=== PATIENT | male | born 1995 | race Hispanic/Latino ===

== ENCOUNTER 2019-02-22 13:39 | Inpatient (IN) | payer MEDICAID, SELFPAY ==
--- NOTE | 2019-02-22 15:04 | RAD ---
2 VIEW CHEST: Date: 02/22/19 HISTORY: Dialysis patient. Renal failure. FINDINGS: The lung andrade are clear. Heart and mediastinum unremarkable. A large caliber central line is in lee ann ce with tip overlying the SVC. IMPRESSION: No acute chest abnormality. POS: C
[2019-02-22 15:25] LABS: #Basophils 0.1 thou/uL (0.0-0.2); #Eosinphils 0.6 thou/uL (0.0-0.7); #Lymphocytes 2.1 thou/uL (1.20-3.40); #Monocytes 0.7 thou/uL (0.11-0.59); %Basophils 1.3 % (0.0-1.0); %Eosinophils 6.8 % (0.0-10.0); %Lymphocytes 24.9 % (21.0-51.0); %Monocytes 8.3 % (0.0-10.0); %Neutrophils 58.7 % (42.0-75.0); Hemoglobin 9.1 g/dL (14.0-18.0); Mean Corpuscular HGB CONC 33.6 g/dL (32.0-36.0); Mean Corpuscular Hemoglobin 30.5 pg (27.0-31.0); Mean Corpuscular Volume 90.7 fL (78.0-98.0); Mean Platelet Volume 9.1 fL (7.4-10.4); Platelet Count 217 thou/uL (130-400); RBC Distribution Width 11.5 % (11.5-14.5); Red Blood Cell (RBC) Count 2.99 mill/uL (4.70-6.10); White Blood Cell (WBC) Count 8.5 thou/uL (4.8-10.8)
[2019-02-22 15:45] LABS: ALT (SGPT) 18 U/L (8-55); AST (SGOT) 17 U/L (5-34); Albumin 3.8 g/dL (3.5-5.0); Alkaline Phosphatase 439 U/L (40-150); Anion Gap 18 mmol/L (10-20); BUN (Urea Nitrogen) 76 mg/dL (8.9-20.6); Bilirubin, Total 0.7 mg/dL (0.2-1.2); Calc. Creatinine Clearance 0 mL/min (70-130); Calcium 10.6 mg/dL (7.8-10.44); Carbon Dioxide 25 mmol/L (22-29); Chloride 102 mmol/L (98-107); Estimated GFR-MDRD 4; Globulin 3.8 g/dL (2.4-3.5); Glucose 87 mg/dL (70-105); Potassium 4.9 mmol/L (3.5-5.1); Protein, Total 7.6 g/dL (6.0-8.3); Sodium 140 mmol/L (136-145)
[2019-02-22 15:56] LABS: Bilirubin Negative (Negative); Blood, Urine Trace (Negative); Clarity CLEAR (Clear); Glucose, Urine (Dipstick) Negative (Negative); Leukocyte Negative (Negative); Nitrite Negative (Negative); Protein, Urine (Dipstick) > or equal to 300 mg/dL (Neg-Trace); Specific Gravity, Urine 1.014 (1.002-1.036); Urobilinogen 0.2 mg/dL (0.2-1.0)
[2019-02-22 15:58] LABS: Bacteria/HPF None Seen HPF (None Seen); Hyaline Casts/LPF 0-3 HYALINE CAST LPF (0-3 Hyaline); RBC/HPF 0-3 HPF (0-3)
[2019-02-22 16:02] LABS: Renal Epithelial None Seen HPF (0-3); Transitional Epithelial NONE SEEN HPF (0-3)
[2019-02-22 18:27] VITALS: BMI 25.7
[2019-02-22] MEDS ORDERED: Acetaminophen 325 MG TAB PO PRN (18:35)
[2019-02-22] MEDS ORDERED: Acetaminophen 650 MG Suppository PR PRN (18:35)
--- NOTE | 2019-02-22 19:48 | HP ---
CHIEF COMPLAINT: In need of dialysis. HISTORY OF PRESENT ILLNESS: Mr. Camejo is a 23-year-old gentleman, who has recently come back from vacation in [place], visiting family. He states he was there for approximately 1 week, when he began to feel generally unwell and was noted to be pale by his family members. He was seen by a doctor in [place] and underwent laboratory studies, which showed renal failure. The patient states he underwent multiple investigations including renal ultrasound, but does not have results of this, though he is carrying images with him. He was seen by a senior cost accountant in [place] and started on dialysis. The patient states he was told his renal failure was due to uncontrolled blood pressure, although the patient states he has never been told he had issues with his blood pressure in the past. He admits to never being seen by a doctor before and being in good state of health until recently. The patient states he began dialysis on February 13, 2019. His 3rd round of dialysis was done this past Wednesday on February 20, 2019. The patient visit and has been living here in [place] for the last few years; however, does not have any established care with a PCP. He was advised to come to the nearest emergency room for dialysis. The patient states he has felt significantly better since starting dialysis, and at this present time, denies feeling any malaise. He has not had any fevers, chills, or sweats. Denies any nausea or vomiting. No headaches or dizziness. No abdominal pain or cramping. He does continue to urinate and does so without any difficulties. Has not noted any hematuria. Has not noted any lower leg edema or swelling. REVIEW OF SYSTEMS: Apart from those mentioned above in HPI, all other review of systems are negative. PAST MEDICAL HISTORY: 1. Newly diagnosed end-stage renal disease, on dialysis. 2. Newly diagnosed hypertension. PAST SURGICAL HISTORY: FAMILY HISTORY: Kidney disease in his paternal great aunt. SOCIAL HISTORY: The patient denies any alcohol use. He does not smoke. Denies any illicit drug use. PHYSICAL EXAMINATION: GENERAL: The patient appears well developed, well nourished. He is in no acute distress. VITAL SIGNS: Temperature 98.3, pulse 86, blood pressure 122/78, respirations 15, O2 saturations 99% on room air. HEENT: Normocephalic and atraumatic. Pupils are equal, round, and reactive to light. Sclerae are without icterus. Oropharynx is clear. NECK: Supple. No lymphadenopathy. LUNGS: Clear to auscultation bilaterally without wheezes, rales, or rhonchi. CARDIAC: Regular rate and rhythm. ABDOMEN: Soft, nontender, nondistended. Normoactive bowel sounds present. No renal angle tenderness. No guarding or rigidity. EXTREMITIES: No edema or swelling in the legs. NEUROLOGIC: Alert and oriented x3. SKIN: Without rash or jaundice. LABORATORY DATA: White blood count 8.5, hemoglobin 9.1, hematocrit 27.1, platelets 217. Sodium 140, potassium 4.9, chloride 102, anion gap 18, BUN 76, creatinine 15.06, GFR 4, glucose 87, calcium 10.6, total bilirubin 0.7, AST 17, ALT 18, alkaline phosphatase 439, albumin 3.8. Urinalysis notable for greater than 300 protein, trace blood, 0 to 3 red blood cells, 11 to 20 white blood cells, 4 to 6 squamous epithelial cells, 0 to 3 hyaline casts. IMAGING DATA: Chest x-ray showed no acute chest abnormality. Large caliber central line in place with tip overlying the SVC. IMPRESSION AND PLAN: Mr. Camejo is a 23-year-old gentleman, who is being admitted for management of the following. 1. End-stage renal disease, on dialysis. The patient states he was recently diagnosed in late January while on vacation in [place]. Instructed by his senior cost accountant to seek immediate treatment at a local ER upon arriving in the [facility]. Has received dialysis on February 20, 2019. We will consult Nephrology for a hemodialysis. At this time, he feels well and is asymptomatic. 2. Hypertension. We will resume home medications and monitor blood pressure. 3. Gastrointestinal prophylaxis. 4. Deep venous thrombosis prophylaxis. 5. Full code status. His surrogate decision maker is his father, Jose Alfredo Camejo. The patient's case was discussed with Dr. Mart, who agrees with plan of care as described above. Job ID: [id number]
[2019-02-22 20:07] LABS: Amphetamine Not Detected (NotDetected); Barbiturates Screen Not Detected (NotDetected); Benzodiazepine Screen Not Detected (NotDetected); Cocaine Metabolite Screen Not Detected (NotDetected); Medtox Control Line Valid? VALID (VALID); Medtox Reader # READER 1; Methadone Not Detected (NotDetected); Methamphetamine Not Detected (NotDetected); Opiate Screen Not Detected (NotDetected); Oxycodone Screen Not Detected (NotDetected); Phencyclidine (PCP) Not Detected (NotDetected); THC/Cannabinoid Screen Not Detected (NotDetected); Tricyclic Screen Not Detected (NotDetected)
[2019-02-22 20:13] LABS: Creatinine, Urine 116.66 mg/dL (63-166)
[2019-02-22] MEDS: Famotidine/PF 20 mg/2ml Vial SLOW IVP SCH (20:13)
[2019-02-22 20:20] LABS: CRP (Inflammatory) Less than 0.50 mg/dL (= or < 0.5)
--- NOTE | 2019-02-22 20:20 | CON ---
DATE OF CONSULTATION: 02/22/2019 REASON FOR CONSULTATION: Acute renal failure with possible need for hemodialysis. CHIEF COMPLAINT: Dialysis needs. HISTORY OF PRESENT ILLNESS: The following history was obtained with the accept of an deaf interpreter. The patient speaks only Malaysian. The patient reportedly has been feeling unwell since about 3 months, associated with weight loss as well as cough with greenish and bloody sputum. The patient reportedly went to [place] about 2 weeks ago and due to ill feeling, has seen a physician, who had asked him to see a kidney specialist, who he subsequently saw on February 13. The patient was subsequently started on hemodialysis via a right peritoneal catheter. Evaluation of accompanying medical report showed that the patient was noted to have abnormal labs with a BUN of 118, creatinine of 12.46 with estimated GFR of 4. The patient also was noticed to have hemoglobin of 7.2. He also was noted to have urinalysis showing 4 to 6 leukocytes with no erythrocytes noticed on microscopy. The patient denied nausea, vomiting, leg swelling, hematuria, polyuria, fever, or night sweats, but admitted ill feeling. He continues to make good urine. He had three sessions of hemodialysis on February 13, February 16 , and February 20 in [place]. He [place] and was asked to present to the ER for dialysis treatment as well as referral for kidney transplant. Currently, the patient denies shortness of breath, fever, nausea, vomiting, leg swelling, or any acute discomfort. Evaluation in the emergency room here today showed creatinine of 15.06 and BUN of 76. Calcium is 10.6. He is therefore admitted for further evaluation and treatment. Of note, potassium is 4.9. PAST MEDICAL HISTORY: None. The patient denied NSAID use. 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 PAST SURGICAL HISTORY: None. SOCIAL HISTORY: The patient lives here in [place]. 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 Denies smoking or recreational drug use. He recently went on a visit to [place] for about 2 weeks when he was diagnosed with kidney disease. ALLERGIES: NO KNOWN DRUG ALLERGY REPORTED. HOME MEDICATIONS: The patient was not on any medication prior to current illness. However, since onset of acute problem, he was placed on telmisartan for hypertension. REVIEW OF SYSTEMS: A 12-point review of systems performed was negative other than pertinent positives and negatives included in the history of present illness. PHYSICAL EXAMINATION: VITAL SIGNS: Temperature 98.0, pulse 80, respiratory rate 18, SpO2 of 98 on room air, blood pressure 126/65. GENERAL: Young male, in no obvious distress. Afebrile, anicteric, acyanotic. HEENT: Normocephalic, atraumatic. Pupils are equal and reacting to light. Oral mucosa is moist. NECK: Supple, nontender with full range of motion. No JVD or mass appreciated. RESPIRATORY: Good air entry bilaterally with no obvious crackle or rhonchi or use of accessory muscles. CARDIOVASCULAR: Regular rhythm and rate with normal heart sounds one and two. GI: Abdomen is full, soft, nontender, nondistended with normal bowel sounds. EXTREMITIES: Grossly normal looking, atraumatic with no edema, erythema, or cyanosis. NEUROLOGIC: Conscious, alert, and oriented x3 with appropriate mental status. Cranial nerves 2 through 12 are intact. DIAGNOSTIC DATA: Pertinent diagnostic data from [place] are as follows CMP showed sodium 140, potassium 4.6, chloride 102, CO2 of 25, anion gap 18, BUN 76, creatinine 15.06, glucose 87, calcium 10.6, total bilirubin 0.7, AST 17, ALT 18, alkaline phosphatase 439, total protein 7.6, albumin 3.8. CBC showed WBC count of 8.5, hemoglobin of 9.1, MCV of 90.7, platelets of 217. Urinalysis showed more than or equal to 300 protein, trace blood with negative glucose, ketones, nitrites, leukocyte esterase, and bilirubin. Microscopy showed 11 to 20 wbc's and 0 to 3 rbc's as well as 4 to 6 squamous epithelial cells. Chest x-ray showed clear lung andrade with unremarkable heart and mediastinum. Large caliber central line is in place with the tip overlying the SVC. ASSESSMENT: Acute renal failure: Acute is unclear. The patient reported ill feeling for about 3 months and was found to have acute renal failure. Etiology is unclear. Denied NSAID use or prior medical problems. He has not been on any medication until currently. Also, denied hematuria or leg swelling. Currently, electrolytes seems acceptable and volume status seems euvolemic. The patient reportedly had three sessions of hemodialysis at the hospital in [place]. Proteinuria Unintentional weight loss Hx of hemoptysis Suspected: given hemoptysis and unintentional weight loss PLAN: We will get urine electrolytes, CRP, ESR, PTH, complements, JOSE ANTONIO with reflex as well as acute hepatitis panel. We will also get renal ultrasound. We will also get vitamin D as well as iron studies. There is no immediate need for dialysis today. We will recheck renal function in the morning. We will also get sputum AFB x3 as well as QuantiFERON-Gold given history of hemoptysis. We will also get urine protein-creatinine ratio and we will consider getting 24- hour urine protein quantification if suggestive. Many thanks for involving us in the care of this patient. We will continue to follow along with you. Further recommendation to follow on re-evaluation of the patient and ordered lab results. Job ID: [id number] MTDD
[2019-02-22 20:42] LABS: HBCM Index 0.06 S/CO (0-0.79); HBSAg Index 0.41 S/CO (0-0.99); HIV (1/2) Antibody/Antigen Non-Reactive (NonReactive); HIV 1/2 INDEX 0.11 S/CO (<1.00); Hep A IgM AB Non-Reactive (NonReactive); Hep A IgM S/CO 0.19 S/CO (0-0.79); Hep B Surf Ag Non-Reactive S/CO (NonReactive); Hep C IgG Ab Non-Reactive (NonReactive); Hep C Index 0.17 S/CO (0-0.79); Hepatitis B Core IgM Abs Non-Reactive (NonReactive)
[2019-02-23 02:08] LABS: Hep B Surf AB Reactive (NonReactive)
[2019-02-23 02:09] LABS: HBSAB Concentration 17574.43 mIU/mL
[2019-02-23 06:32] LABS: #Basophils 0.1 thou/uL (0.0-0.2); #Eosinphils 0.5 thou/uL (0.0-0.7); #Lymphocytes 2.1 thou/uL (1.20-3.40); #Monocytes 0.6 thou/uL (0.11-0.59); #Neutrophils 4.2 thou/uL (1.40-6.50); %Basophils 1.6 % (0.0-1.0); %Eosinophils 6.5 % (0.0-10.0); %Lymphocytes 27.5 % (21.0-51.0); %Monocytes 8.3 % (0.0-10.0); %Neutrophils 56.1 % (42.0-75.0); Hemoglobin 8.6 g/dL (14.0-18.0); Mean Corpuscular Hemoglobin 30.3 pg (27.0-31.0); Mean Corpuscular Volume 91.7 fL (78.0-98.0); Mean Platelet Volume 9.5 fL (7.4-10.4); Platelet Count 188 thou/uL (130-400); RBC Distribution Width 11.5 % (11.5-14.5); Red Blood Cell (RBC) Count 2.83 mill/uL (4.70-6.10); White Blood Cell (WBC) Count 7.6 thou/uL (4.8-10.8)
[2019-02-23 06:44] LABS: Iron 50 ug/dL (65-175); Iron Binding Capacity, Total 221 mcg/dL (261-462)
[2019-02-23 06:45] LABS: ALT (SGPT) 18 U/L (8-55); AST (SGOT) 15 U/L (5-34); Albumin 3.5 g/dL (3.5-5.0); Alkaline Phosphatase 448 U/L (40-150); Anion Gap 21 mmol/L (10-20); BUN (Urea Nitrogen) 83 mg/dL (8.9-20.6); Bilirubin, Total 0.6 mg/dL (0.2-1.2); Calc. Creatinine Clearance 7 mL/min (70-130); Calcium 10.3 mg/dL (7.8-10.44); Carbon Dioxide 20 mmol/L (22-29); Chloride 103 mmol/L (98-107); Estimated GFR-MDRD 4; Globulin 3.5 g/dL (2.4-3.5); Glucose 80 mg/dL (70-105); Iron Binding Capacity, Total 225 mcg/dL (261-462); Potassium 5.1 mmol/L (3.5-5.1); Sodium 139 mmol/L (136-145)
[2019-02-23 07:14] LABS: Ferritin 296.35 ng/mL (22-322)
[2019-02-23 07:15] LABS: Vitamin D, 25 Hydroxy 13.2 ng/ml (> 30.0)
--- NOTE | 2019-02-23 08:16 | ULT ---
BILATERAL RENAL ULTRASOUND: Date: 02/22/19 HISTORY: Renal insufficiency. FINDINGS: Real-time imaging of the right and left kidneys were performed. Right kidney measures 7.7 cm and the left kidney measures 7.8 cm in size. Both kidneys are of increas ed echogenicity. No signs of cyst or mass. No obstruction demonstrated. Bladder region appears unrema rkable. Bladder is not distended. IMPRESSION: 1. Marked increased echogenicity to both kidneys, suggesting underlying medical renal parenchymal di sease. No obstruction. 2. Incidental note is made of a tiny, 10.0 mm, cyst involving the right kidney. POS: [facility]
[2019-02-23] MEDS ORDERED: Heparin 10,000 UNITS/ 10 ML VIAL ONE (10:00)
[2019-02-23] MEDS: Ergocalciferol 1.25 MG(50,000 UNITS) CAP PO SCH (10:17)
[2019-02-23] MEDS: Sevelamer Carbonate 800 MG TAB PO SCH ×2 (12:17→19:07)
--- NOTE | 2019-02-23 12:23 | PRG ---
DATE OF SERVICE: 02/23/2019 SUBJECTIVE: A 23-year-old male admitted due to acute renal failure for which he was recently started on dialysis in [place]. The patient reported hemoptysis and weight loss, noted improvement in his cough. Benign current hemoptysis. Denies shortness of breath, fever, nausea, or vomiting. No new complaint. Last dialysis was on 02/20 in [place]. OBJECTIVE: VITAL SIGNS: Temperature 98.2, pulse 86, respiratory rate 16, SpO2 99% on room air, blood pressure 113/69. GENERAL: Young male, in no obvious distress. Afebrile, anicteric, acyanotic. HEENT: Normocephalic, atraumatic. Pupils are equal and reacting to light. Oral mucosa is moist. CARDIOVASCULAR: Regular rhythm and rate with normal heart sounds 1 and 2. RESPIRATORY: Good air entry bilaterally with no obvious crackle or rhonchi or use of accessory muscles. GI: Abdomen is full, soft, nontender, nondistended with normal bowel sounds. EXTREMITIES: Grossly normal looking atraumatic with no edema or erythema. NEUROLOGIC: Conscious and alert, oriented x3 with appropriate mental status. ACCESS: Right IJ tunneled catheter. DIAGNOSTIC DATA: CBC showed WBC count of 7.6, hemoglobin of 8.6, MCV of 91.7, platelet of 188. CMP showed sodium 139, potassium 5.1, chloride 103, CO2 of 20, BUN 83, creatinine 15.93, glucose 80, calcium 10.3, total bilirubin 0.6, AST 15, ALT 18, alkaline phosphatase 448, total protein 7.0, albumin 3.5. Phosphorus is 10.0. PTH is 1836.6. Vitamin D is 13.2. Iron chemistry showed serum iron 50, TIBC 221, iron saturation 23, ferritin 296.3. Complements check showed C3-113, C4-24. Urine drug screen was unremarkable. Urine protein creatinine ratio. Random urine protein is 745 mg/dL. Random urine creatinine is 116.66 mg/dL with UPC ratio of 6.3 g/g of creatinine. Acute hepatitis panel was unremarkable. HIV 1 and 2 antigen and antibody also were unremarkable. Renal ultrasound showed markedly increased echogenicity of both kidneys consistent with underlying medical renal parenchymal disease. No obstruction was noted. ASSESSMENT: Chronic kidney disease, stage 5. The patient certainly needs regular dialysis now. Etiology however is unclear. Chronic glomerulonephritis is a concern. Chronicity of the kidney disease suggested by secondary hyperparathyroidism and hyperphosphatemia Last hemodialysis was on 02/20. Secondary hyperparathyroidism: PTH of above 1800. Due to CKD Nephrotic range proteinuria: With UPC of 6 g. Etiology is unclear Volume status: The patient seems euvolemic. Electrolytes and acid-base: Potassium is 5.1, and CO2 is 20. It is due to chronic kidney disease. Unintentional weight loss: Association with hemoptysis is concerning for TB. May well be due to uremia Suspected TB: Given unintentional weight loss and hemoptysis. AFB x3 and QuantiFERON gold is awaited at this time. Anemia: Due to CKD. PLAN: We will start regular hemodialysis on Wednesday, , and Wednesday. We will also start the patient on phosphate binders as well as vitamin D supplementation for treatment of secondary hyperparathyroidism. We will also IV iron supplementation and will consider erythropoiesis stimulating agent if hemoglobin remains suboptimal following iron treatment. Continue airborne precaution while awaiting AFB x3 and QuantiFERON gold test. I have discussed dialysis options of him with the patient. He is still undecided whether to continue with hemodialysis or switch to peritoneal dialysis. Once the patient makes a decision, we will proceed with either AV fistula creation or PD catheter placement. Case management has been involved with arrangement of dialysis here. Job ID: [id number] [facility]
--- NOTE | 2019-02-23 17:19 | PDOC.PN ---
- Subjective Encounter Start Date: 02/23/19 Encounter Start Time: 17:16 Patient lying in bed, he was being worked up for TB, however no acid fast bacilli noted. Nephrology following and planning continued dialysis. He denies chest pain, shortness of breath or abdominal pain. - Objective Resuscitation Status - Order Detail: 02/22/19 18:35 Resuscitation Status Routine Co-Sign Provider: Resuscitation Status: FULL: Full Resuscitation Discussed with: patient MAR Reviewed: Yes Vital Signs & Weight: Vital Signs (12 hours) Temp Pulse Resp BP Pulse Ox 02/23/19 16:40 98.4 F 85 20 109/53 L 98 02/23/19 12:08 98.5 F 94 14 131/72 97 02/23/19 08:00 98.2 F 86 16 113/69 99 02/23/19 05:36 98.2 F 95 18 114/68 97 Weight Weight 159 lb 5 oz Result Diagrams: 02/23/19 06:17 02/23/19 06:17 Radiology Reviewed by me: Yes Phys Exam - Physical Examination Constitutional: NAD HEENT: moist MMs, oral pharynx no lesions Neck: no nodes, supple Respiratory: no wheezing, clear to auscultation bilateral Cardiovascular: RRR, no significant murmur Gastrointestinal: soft, positive bowel sounds Musculoskeletal: pulses present Neurological: non-focal, moves all 4 limbs Lymphatic: no nodes Psychiatric: normal affect, A&O x 3 Skin: no rash, cap refill <2 seconds Dx/Plan (1) ESRD (end stage renal disease) on dialysis Code(s): N18.6 - END STAGE RENAL DISEASE; Z99.2 - DEPENDENCE ON RENAL DIALYSIS Status: Acute (2) Iron (Fe) deficiency anemia Code(s): D50.9 - IRON DEFICIENCY ANEMIA, UNSPECIFIED Status: Acute (3) Secondary hyperparathyroidism Code(s): N25.81 - SECONDARY HYPERPARATHYROIDISM OF RENAL ORIGIN Status: Acute - Plan cont current plan of care * Continue with dialysis per nephrology * Labs reviewed and showing iron deficiency and hyperparathyroidism * Recheck labs in am * No acid fast bacilli noted, likely no TB * Continue home medications * Case management consulted to assist with outpatient placement for dialysis
[2019-02-23] MEDS: Famotidine/PF 20 mg/2ml Vial SLOW IVP SCH (20:50)
[2019-02-24] MEDS: Calcitriol 0.25 MCG CAP PO SCH (09:52)
[2019-02-24] MEDS: Sevelamer Carbonate 800 MG TAB PO SCH ×3 (09:52→17:32)
[2019-02-24] MEDS ORDERED: Iron, Sodium Ferric Gluconate 250 MG in Sodium Chloride 0.9% 250 ML 250 ML IVPB SCH (10:00)
[2019-02-24 11:26] LABS: Albumin 3.8 g/dL (3.5-5.0); Anion Gap 18 mmol/L (10-20); BUN (Urea Nitrogen) 37 mg/dL (8.9-20.6); BUN/Creatinine Ratio 3.74; Calc. Creatinine Clearance 12 mL/min (70-130); Calcium 10.5 mg/dL (7.8-10.44); Carbon Dioxide 27 mmol/L (22-29); Chloride 99 mmol/L (98-107); Estimated GFR-MDRD 7; Glucose 79 mg/dL (70-105); Potassium 4.7 mmol/L (3.5-5.1); Sodium 139 mmol/L (136-145)
[2019-02-24 11:33] LABS: Phosphorus 9.5 mg/dL (2.3-4.7)
[2019-02-24 11:52] LABS: ANA Symphony (Qualitative) Negative (Negative); ANA Symphony (Quantitative) 0.2 Ratio (< 0.7 Negative); dsDNA IgG Antibody 2.8 IU/mL (<10 Negative)
--- NOTE | 2019-02-24 12:01 | PRG ---
DATE OF SERVICE: 02/24/2019 SUBJECTIVE: A 23-year-old admitted due to acute renal failure requiring hemodialysis. The patient was started on regular hemodialysis yesterday February. Tolerated hemodialysis well. Still making urine. Denied fever, chest pain, nausea, or vomiting. Appetite is good. OBJECTIVE: VITAL SIGNS: Temperature 98.5, pulse 87, respiratory rate 16, SpO2 of 97 on room air, and blood pressure 105/67. GENERAL: Young male, in no distress. Afebrile, anicteric. HEENT: Normocephalic, atraumatic. Pupils are equal and reacting to light. CARDIOVASCULAR: Regular rhythm and rate. Normal heart sounds 1 and 2. No murmur was appreciated. RESPIRATORY: Good air entry bilaterally with no obvious crackle or rhonchi. GI: Abdomen is full, soft, nontender, nondistended with normal bowel sounds. EXTREMITIES: Grossly normal looking, atraumatic with no edema or erythema. SKIN: Multiple hyperpigmented area on the skin noted. NEUROLOGIC: Conscious, alert, oriented x3 with appropriate mental status. ACCESS: Right IJ tunneled catheter. DIAGNOSTIC DATA: Renal function panel is pending at this time. Also, antinuclear antibody panel is pending. ASSESSMENT: 1. End-stage renal disease. The patient started on hemodialysis TTS on February 23, 2019. He tolerated dialysis well. Of note, the patient had three sessions of hemodialysis in [place] before [place] to [place] 2. Secondary hyperparathyroidism with PTH of 1834. 3. Nephrotic range proteinuria. 4. Volume status: Acceptable as the patient seems euvolemic. 5. Suspected tuberculosis: Sputum AFB and QuantiFERON test are awaited at this time. 6. Anemia of chronic kidney disease. PLAN: 1. No hemodialysis today. 2. We will start IV iron supplementation with Venofer 200 mg daily for three days. 3. We will also get a 24-hour urine collection for quantification of proteinuria. 4. We will get renal function panel and address electrolyte derangements if any. 5. Continue airborne precaution while awaiting for AFB and QuantiFERON test. 6. Consult vascular surg for AV fistula creation Job ID: [id number] MTDD
--- NOTE | 2019-02-24 17:01 | PDOC.PN ---
- Subjective Encounter Start Date: 02/24/19 Encounter Start Time: 16:59 Patient reports feeling better today, Cr improved. Nephrology following and discussing further hemodialysis vs PD with patient. He denies chest pain, palpitations, shortness of breath or abdominal pain. He tolerated HD yesterday - Objective Resuscitation Status - Order Detail: 02/22/19 18:35 Resuscitation Status Routine Co-Sign Provider: Resuscitation Status: FULL: Full Resuscitation Discussed with: patient MAR Reviewed: Yes Vital Signs & Weight: Vital Signs (12 hours) Temp Pulse Resp BP Pulse Ox 02/24/19 08:26 98.5 F 87 16 105/67 97 02/24/19 08:00 97 Weight Weight 159 lb 5 oz I&O: 02/23/19 02/24/19 02/25/19 06:59 06:59 06:59 Intake Total 200 Balance 200 Result Diagrams: 02/23/19 06:17 02/24/19 10:38 Radiology Reviewed by me: Yes Phys Exam - Physical Examination Constitutional: NAD HEENT: moist MMs, oral pharynx no lesions Neck: no nodes, supple IJ cath in place Respiratory: no wheezing, clear to auscultation bilateral Cardiovascular: RRR, no significant murmur Gastrointestinal: soft, positive bowel sounds Musculoskeletal: pulses present Neurological: non-focal, moves all 4 limbs Psychiatric: normal affect, A&O x 3 Skin: cap refill <2 seconds Dx/Plan (1) ESRD (end stage renal disease) on dialysis Code(s): N18.6 - END STAGE RENAL DISEASE; Z99.2 - DEPENDENCE ON RENAL DIALYSIS Status: Acute (2) Iron (Fe) deficiency anemia Code(s): D50.9 - IRON DEFICIENCY ANEMIA, UNSPECIFIED Status: Acute (3) Secondary hyperparathyroidism Code(s): N25.81 - SECONDARY HYPERPARATHYROIDISM OF RENAL ORIGIN Status: Acute - Plan cont current plan of care * Continue Dialysis per nephrology, discussing options as outpatient * Consult placed for further fistula placement for more permanent access * Continue current regimen * Await acid fast * JOSE ANTONIO unreactive * Cr improved today * Monitor vitals and recheck labs in am, likely dialysis tomorrow
[2019-02-24] MEDS: Famotidine 20 MG TAB PO SCH (20:26)
[2019-02-25] MEDS ORDERED: Zolpidem Tartrate 5 MG TAB PO PRN (07:59)
[2019-02-25] MEDS ORDERED: Ondansetron ODT 4 MG TAB PO PRN (07:59)
[2019-02-25] MEDS ORDERED: Diabetic Tussin 200 MG/10 ML UDCUP PO PRN (07:59)
[2019-02-25] MEDS ORDERED: hydrALAZINE 20 MG/ML VIAL SLOW IVP PRN (07:59)
[2019-02-25] MEDS ORDERED: Artificial Tears 18 DROP/0.9 ML EA EYE PRN (07:59)
[2019-02-25] MEDS ORDERED: Eucerin (Mineral Oil/Petrolatum,White) 30 gm Jar TOP PRN (07:59)
[2019-02-25] MEDS ORDERED: Bisacodyl 5 MG TAB PO PRN (07:59)
[2019-02-25] MEDS ORDERED: HYDROcodone/Acetaminophen 5/325 mg Tablet PO PRN (07:59)
[2019-02-25] MEDS ORDERED: Senokot S 8.6-50 MG TAB PO PRN (07:59)
[2019-02-25] MEDS ORDERED: Sodium Chloride 0.65% Nasal 44 ML BOT EA NARE PRN (07:59)
[2019-02-25] MEDS ORDERED: Cepastat Lozenges 1 LOZ PO PRN (07:59)
[2019-02-25] MEDS ORDERED: Loperamide HCl 2 MG CAP PO PRN (07:59)
[2019-02-25] MEDS ORDERED: Ondansetron PF 4 MG/2 ML Vial IVP PRN (07:59)
[2019-02-25] MEDS ORDERED: Loratadine 10 MG TAB PO PRN (07:59)
[2019-02-25 08:08] LABS: #Eosinphils 0.3 thou/uL (0.0-0.7); #Lymphocytes 1.7 thou/uL (1.20-3.40); #Monocytes 0.7 thou/uL (0.11-0.59); #Neutrophils 5.1 thou/uL (1.40-6.50); %Basophils 0.6 % (0.0-1.0); %Eosinophils 4.1 % (0.0-10.0); %Lymphocytes 21.3 % (21.0-51.0); %Monocytes 9.3 % (0.0-10.0); %Neutrophils 64.6 % (42.0-75.0); Hemoglobin 8.7 g/dL (14.0-18.0); Mean Corpuscular HGB CONC 33.6 g/dL (32.0-36.0); Mean Corpuscular Hemoglobin 30.4 pg (27.0-31.0); Mean Corpuscular Volume 90.5 fL (78.0-98.0); Mean Platelet Volume 9.1 fL (7.4-10.4); Platelet Count 199 thou/uL (130-400); RBC Distribution Width 11.7 % (11.5-14.5); Red Blood Cell (RBC) Count 2.87 mill/uL (4.70-6.10); White Blood Cell (WBC) Count 7.9 thou/uL (4.8-10.8)
[2019-02-25 08:27] LABS: Albumin 3.6 g/dL (3.5-5.0); Anion Gap 19 mmol/L (10-20); BUN (Urea Nitrogen) 57 mg/dL (8.9-20.6); BUN/Creatinine Ratio 4.71; Calc. Creatinine Clearance 10 mL/min (70-130); Calcium 10.4 mg/dL (7.8-10.44); Carbon Dioxide 24 mmol/L (22-29); Chloride 100 mmol/L (98-107); Estimated GFR-MDRD 5; Glucose 79 mg/dL (70-105); Potassium 4.8 mmol/L (3.5-5.1); Sodium 138 mmol/L (136-145)
--- NOTE | 2019-02-25 08:28 | ULT ---
FUltrasound Doppler duplex venous bilateral upper extremities: Vein mapping HISTORY: 23-year-old male with chronic renal failure. End-stage renal disease. Surgical planning study for AV hemodialysis fistula surgery. FINDINGS: Caliber of vessels given in millimeters Right: Brachial artery: 5 Radial artery: 2 Ulnar artery: 2 Cephalic vein: Proximal arm: 2.5 Mid arm: 1.5 Distal arm: 2 Antecubital: 2 Proximal forearm: 1.5 Mid forearm: 1.5 Distal forearm: Not visualized Basilic vein: Proximal arm: 4.5 Mid arm: 5 Distal arm: 3.5 Antecubital: 3 Proximal forearm: 2.5 Mid forearm: 4 Distal forearm: 2 Left: Brachial artery: 4 Radial artery: 2 Ulnar artery: 2 Cephalic vein: Proximal arm: 2 Mid arm: 1 Distal arm: 1 Antecubital: Not visualized Proximal forearm: Not visualized Mid forearm: Not visualized Distal forearm: Not visualized Basilic vein: Proximal arm: 5 Mid arm: 3.5 Distal arm: 3.5 Antecubital: 1.5 Proximal forearm: 1 Mid forearm: Not visualized Distal forearm: Not visualized. IMPRESSION: The basilic veins of the bilateral proximal arms are consistently greater than 3 mm in caliber.
[2019-02-25 08:34] LABS: Phosphorus 10.2 mg/dL (2.3-4.7)
[2019-02-25] MEDS ORDERED: Iron, Sodium Ferric Gluconate 250 MG in Sodium Chloride 0.9% 250 ML 250 ML IVPB SCH (09:00)
[2019-02-25] MEDS: Iron, Sodium Ferric Gluconate 250 MG in Sodium Chloride 0.9% 250 ML 250 ML IVPB SCH (09:06)
--- NOTE | 2019-02-25 10:38 | PDOC.PN ---
- Subjective Encounter Start Date: 02/25/19 Encounter Start Time: 09:00 -: old records requested/rev Patient seen and examined. No new complaints. No overnight events - Objective Resuscitation Status - Order Detail: 02/22/19 18:35 Resuscitation Status Routine Co-Sign Provider: Resuscitation Status: FULL: Full Resuscitation Discussed with: patient MAR Reviewed: Yes Vital Signs & Weight: Vital Signs (12 hours) Temp Pulse Resp BP Pulse Ox 02/25/19 07:58 97.6 F 91 16 110/70 98 02/25/19 04:00 98.4 F 82 18 121/74 97 Weight Weight 159 lb 5 oz I&O: 02/24/19 02/25/19 02/26/19 06:59 06:59 06:59 Intake Total 200 1000 Balance 200 1000 Result Diagrams: 02/25/19 07:22 02/25/19 07:22 Phys Exam - Physical Examination Constitutional: NAD HEENT: PERRLA, moist MMs, sclera anicteric Neck: no JVD, supple Respiratory: no wheezing, no rales, no rhonchi Cardiovascular: RRR, no significant murmur, no rub Gastrointestinal: soft, non-tender, no distention, positive bowel sounds Musculoskeletal: no edema, pulses present Neurological: non-focal, normal sensation Lymphatic: no nodes Psychiatric: normal affect Skin: no rash, normal turgor Dx/Plan (1) ESRD (end stage renal disease) on dialysis Code(s): N18.6 - END STAGE RENAL DISEASE; Z99.2 - DEPENDENCE ON RENAL DIALYSIS Status: Acute (2) Anemia of renal disease Code(s): N18.9 - CHRONIC KIDNEY DISEASE, UNSPECIFIED; D63.1 - ANEMIA IN CHRONIC KIDNEY DISEASE Status: Chronic (3) Metabolic acidosis Code(s): E87.2 - ACIDOSIS Status: Chronic (4) Nephrotic range proteinuria Code(s): R80.9 - PROTEINURIA, UNSPECIFIED Status: Chronic (5) Secondary hyperparathyroidism of renal origin Code(s): N25.81 - SECONDARY HYPERPARATHYROIDISM OF RENAL ORIGIN Status: Chronic (6) Vitamin D deficiency Code(s): E55.9 - VITAMIN D DEFICIENCY, UNSPECIFIED Status: Chronic - Plan cont current plan of care * medication reviewed as below * symptomatic treatment * continue HD * arrange outpt HD . Review of Systems - Review of Systems ENT: negative: Ear Pain, Ear Discharge, Nose Pain, Nose Discharge, Nose Congestion, Mouth Pain, Mouth Swelling, Throat Pain, Throat Swelling, Other Respiratory: negative: Cough, Dry, Shortness of Breath, Hemoptysis, SOB with Excertion, Pleuritic Pain, Sputum, Wheezing Cardiovascular: negative: chest pain, palpitations, orthopnea, paroxysmal nocturnal dyspnea, edema, light headedness, other Gastrointestinal: negative: Nausea, Vomiting, Abdominal Pain, Diarrhea, Constipation, Melena, Hematochezia, Other Genitourinary: negative: Dysuria, Frequency, Incontinence, Hematuria, Retention , Other Musculoskeletal: negative: Neck Pain, Shoulder Pain, Arm Pain, Back Pain, Hand Pain, Leg Pain, Foot Pain, Other Skin: negative: Rash, Lesions, Justin, Bruising, Other - Medications/Allergies Allergies/Adverse Reactions: Allergies Allergy/AdvReac Type Severity Reaction Status Date / Time No Known Allergies Allergy Verified 02/22/19 18:30 Medications: Current Medications Acetaminophen (Tylenol) 650 mg PO Q4H PRN PRN Reason: Headache/Fever/Mild Pain (1-3) Acetaminophen (Tylenol) 650 mg [place] Q4H PRN PRN Reason: Headache/Fever/Mild Pain (1-3) Hydrocodone Bitart/Acetaminophen ([place] 5/325) 1 tab PO Q4H PRN PRN Reason: Moderate Pain (4-6) Artificial Tears (Tears Naturale) 2 drop EA EYE PRN PRN PRN Reason: Dry Eyes Bisacodyl (Dulcolax) 10 mg PO DAILYPRN PRN PRN Reason: Constipation Calcitriol (Rocaltrol) 0.25 mcg PO DAILY [facility] Last Admin: 02/24/19 09:52 Dose: 0.25 mcg Ergocalciferol (Drisdol) 1.25 mg PO Q7DAYS [facility] Last Admin: 02/23/19 10:17 Dose: 1.25 mg Famotidine (Pepcid) 20 mg PO QPM [facility] Last Admin: 02/24/19 20:26 Dose: 20 mg Guaifenesin (Robitussin Sf) 200 mg PO Q4H PRN PRN Reason: Cough Heparin Sodium (Porcine) (Heparin) 5,000 units SC BID [facility] Hydralazine HCl (Apresoline) 10 mg SLOW IVP Q4H PRN PRN Reason: SBP > 180 and HR < 70 Ferric Sodium Gluconate Complex 250 mg/ Sodium Chloride 270 mls @ 129.808 mls/ hr IVPB DAILY [facility] Last Admin: 02/25/19 09:06 Dose: 270 mls Loperamide HCl (Imodium) 2 mg PO PRN PRN PRN Reason: Diarrhea/Loose Stools Loratadine (Claritin) 10 mg PO DAILYPRN PRN PRN Reason: Sinus Symptoms Mineral Oil/White Petrolatum (Eucerin Cream) 0 gm TOP BIDPRN PRN PRN Reason: Dry Skin Ondansetron HCl (Zofran Odt) 4 mg PO Q6H PRN PRN Reason: Nausea/Vomiting Ondansetron HCl (Zofran) 4 mg IVP Q6H PRN PRN Reason: Nausea/Vomiting Senna/Docusate Sodium (Senokot S) 2 tab PO BID PRN PRN Reason: Constipation Sevelamer Carbonate (Renvela) 1,600 mg PO TID-[facility] Sodium Chloride (Flush - Normal Saline) 10 ml IVF Q12HR PRN PRN Reason: Saline Flush Sodium Chloride (Flush - Normal Saline) 10 ml IVF PRN PRN PRN Reason: Saline Flush Sodium Chloride ([place] Nasal [place] 0.65%) 0 ml EA NARE QIDPRN PRN PRN Reason: Nasal Congestion Throat Lozenges (Cepastat Lozenges) 1 dorothy PO Q2H PRN PRN Reason: Sore Throat Zolpidem Tartrate (Ambien) 5 mg PO HSPRN PRN PRN Reason: Insomnia
[2019-02-25 11:28] LABS: 24 Hr Creatinine 274.23 mg/24 hr (950-2490); Creatinine, Urine 49.86 mg/dL (63-166)
[2019-02-25] MEDS: Sevelamer Carbonate 800 MG TAB PO SCH ×3 (11:42→17:41)
[2019-02-25] MEDS ORDERED: Cinacalcet HCl 30 MG TAB PO SCH (12:30)
[2019-02-25] MEDS ORDERED: Sodium Chloride 3% (15 ML) NEB NEB PRN (12:42)
[2019-02-25] MEDS: Calcitriol 0.25 MCG CAP PO SCH (12:53)
[2019-02-25] MEDS: Heparin 5,000 UNITS/ML VIAL SC SCH ×2 (12:53→20:29)
[2019-02-25 13:21] LABS: Microalbumin-Urine Greater than 200.0 mg/dL
--- NOTE | 2019-02-25 17:40 | PRG ---
DATE OF SERVICE: 02/25/2019 SUBJECTIVE: A 23-year-old admitted with acute renal failure. Currently requiring hemodialysis. The patient is still making urine, but denied dysuria, fever, hematuria, or change in appetite. Last hemodialysis was two days ago. He is for dialysis today. OBJECTIVE: VITAL SIGNS: Temperature 97.6, pulse is 91, respiratory rate 16, SpO2 of 98 on room air, and blood pressure 110/70. GENERAL: Young male, in no distress. Afebrile and anicteric. HEENT: Normocephalic and atraumatic. Pupils are equal and reacting to light. RESPIRATORY: Good air entry bilaterally with no crackle or rhonchi. CARDIOVASCULAR: Regular rhythm and rate with normal heart sounds 1 and 2. GI: Abdomen is soft, nontender, and nondistended with normal bowel sounds. EXTREMITIES: Grossly normal looking, atraumatic with no edema or erythema. NEUROLOGIC: Conscious, alert, oriented x3 with appropriate mental status. DIAGNOSTIC DATA: JOSE ANTONIO screen was negative. 24-hour urine collection showed total volume 550 mL. Urine creatinine is 49.86 mg/dL and total protein was 2085 mg per 24 hours. Renal function panel showed sodium 138, potassium 4.8, chloride 100, CO2 of 24, BUN 57, creatinine 12.09, glucose 79, calcium 10.4, phosphorus 10.2, albumin 3.6. CBC showed WBC count of 7.9, hemoglobin of 8.7, platelet of 199. ASSESSMENT: 1. Acute renal failure, now end-stage renal disease requiring hemodialysis. First hemodialysis was on February 13 in [place]. The patient is currently on TTS schedule since February 23, 2019. Etiology of renal failure remains unclear at this time. 2. Proteinuria: 24-hour urine collection showed total protein of 2085 mg in 24 hours, which is lower than 6 g noticed on UPC. 3. Secondary hyperparathyroidism. 4. Hyperphosphatemia. 5. Suspected tuberculosis given weight loss and history of hemoptysis. 6. Anemia of chronic kidney disease. PLAN: 1. For hemodialysis today, the patient will have 4 hours with blood flow of 400, 2K bath with UF of 0 to 500s as tolerated. The patient continues to make urine. 2. We will continue IV iron supplementation. 3. Awaiting for AV fistula creation by General Surgery. 4. Awaiting AFB x3 and QuantiFERON gold test. 5. Arrangement for outpatient dialysis is in progress. Job ID: [id number]
[2019-02-25] MEDS: Famotidine 20 MG TAB PO SCH (20:30)
--- NOTE | 2019-02-25 22:05 | CON ---
DATE OF CONSULTATION: REASON FOR CONSULT: Need for dialysis access. HISTORY OF PRESENT ILLNESS: Mr. Camejo is a 23-year-old man recently diagnosed with renal failure of unknown etiology. He does have nephrotic range proteinuria. He had malaise and fatigue and a general feeling of being unwell and went to a physician in [place], was diagnosed with renal failure. He was started on dialysis and had a tunneled hemodialysis catheter placed. He has since returned to the [place] and was admitted here for institution of dialysis. There was suspicion of possible tuberculosis, so he is also being ruled out for that. He has had 1 negative sputum, but has been unable to produce an adequate sample for the past 2 days. The patient states other than his recently diagnosed renal failure, he has no known medical problems. He states that since beginning dialysis he is feeling much better and the malaise and feeling of illness is resolved. He plans to continue with hemodialysis. Does not plan on pursuing home dialysis with peritoneal dialysis. PAST MEDICAL HISTORY: Newly diagnosed renal failure and hypertension. PAST SURGICAL HISTORY: Tunneled hemodialysis catheter. FAMILY HISTORY: Diabetes in his grandmother. He does not know of any other relatives on dialysis. SOCIAL HISTORY: The patient does not smoke, drink, or use illicit drugs. REVIEW OF SYSTEMS: Ten system review of systems is entirely negative. LABORATORY DATA: Hematocrit is 25. The rest of his CBC is unremarkable. BUN and creatinine are 57 and 12.09, and phosphorus is elevated at 10.2. Other electrolytes are unremarkable. Alkaline phosphatase is elevated at 448, but other LFTs are unremarkable. Urine protein is over 300. Drug screen is negative and hepatitis panel is negative. First AFB smear is negative. Final culture is pending. The patient has been unable to give a morning sputum sample in the last couple of days. Chest x-ray is unremarkable. Marking ultrasound shows reasonable caliber upper arm cephalic vein on the right, not visualized in the distal forearm. Basilic veins in both sides are reasonable caliber in the upper arm. The cephalic vein in the left forearm was not visualized and is rather small in the upper arm. PHYSICAL EXAMINATION: VITAL SIGNS: The patient is afebrile, heart rate 91, respirations 16, 98% saturated on room air, and blood pressure 110/70. GENERAL: Reveals a healthy-appearing young man, in no acute distress. HEENT: Unremarkable. NECK: Supple without lymphadenopathy or thyroid nodules. HEART: Regular in its rate and rhythm without murmurs, rubs, or gallops. LUNGS: Clear to auscultation bilaterally. ABDOMEN: Soft, nontender, and nondistended. He has a palpable forearm cephalic vein on the right as well as bilateral antecubital veins. He is right-handed. He has mildly radial predominant filling on Jamal's testing bilaterally. NEUROLOGIC: No focal deficits. PSYCHIATRIC: Alert, oriented, and appropriate. EXTREMITIES: Warm well perfused without significant edema. ASSESSMENT AND PLAN: Renal failure with ongoing need for dialysis. He has a tunneled catheter in place, so we will plan on fistula placement after he has been ruled out for TB to avoid unnecessarily exposing additional people in the operating room, this could be done on an outpatient basis. He is right-handed and based on vein mapping, will likely require a basilic vein fistula with later transposition. We would attempt this on the left due to his right arm dominance, and if the attempt is unsuccessful, then a primary fistula on the right arm would be recommended. He currently has a right forearm IV, which does not appear to be in the cephalic or basilic vein and I have left this in place. Job ID: [id number]
[2019-02-26 08:02] LABS: Albumin 3.6 g/dL (3.5-5.0); Anion Gap 15 mmol/L (10-20); BUN (Urea Nitrogen) 31 mg/dL (8.9-20.6); BUN/Creatinine Ratio 3.89; Calc. Creatinine Clearance 15 mL/min (70-130); Calcium 9.8 mg/dL (7.8-10.44); Carbon Dioxide 29 mmol/L (22-29); Chloride 99 mmol/L (98-107); Estimated GFR-MDRD 9; Glucose 72 mg/dL (70-105); Phosphorus 8.1 mg/dL (2.3-4.7); Potassium 4.2 mmol/L (3.5-5.1); Sodium 139 mmol/L (136-145)
[2019-02-26] MEDS: Cinacalcet HCl 30 MG TAB PO SCH (08:12)
[2019-02-26] MEDS: Heparin 5,000 UNITS/ML VIAL SC SCH (08:12)
[2019-02-26] MEDS: Sevelamer Carbonate 800 MG TAB PO SCH ×3 (08:12→16:48)
[2019-02-26] MEDS: Calcitriol 0.25 MCG CAP PO SCH (08:12)
[2019-02-26] MEDS: Iron, Sodium Ferric Gluconate 250 MG in Sodium Chloride 0.9% 250 ML 250 ML IVPB SCH (09:22)
[2019-02-26] MEDS ORDERED: Heparin 10,000 UNITS/ 10 ML VIAL ONE (13:25)
--- NOTE | 2019-02-26 15:03 | PDOC.PN ---
- Subjective Encounter Start Date: 02/26/19 (f/u ESRD) Encounter Start Time: 15:01 Subjective: Pt without complaints today. Does have some dizziness after dialysis - -: last session yesterday. Denies n/v/abd pain/change in appetite/ -: dyspnea or any other concerns - Objective Resuscitation Status - Order Detail: 02/22/19 18:35 Resuscitation Status Routine Co-Sign Provider: Resuscitation Status: FULL: Full Resuscitation Discussed with: patient Vital Signs & Weight: Vital Signs (12 hours) Temp Pulse Resp BP Pulse Ox 02/26/19 08:17 98.2 F 68 18 99/56 L 97 02/26/19 08:00 98 Weight Weight 159 lb 5 oz I&O: 02/25/19 02/26/19 02/27/19 06:59 06:59 06:59 Intake Total 1000 980 600 Balance 1000 980 600 Result Diagrams: 02/25/19 07:22 02/26/19 07:02 Additional Labs: afb negative x 2, culture pending Phys Exam - Physical Examination Constitutional: NAD Respiratory: no wheezing, no rales, no rhonchi, clear to auscultation bilateral Cardiovascular: RRR, no significant murmur Gastrointestinal: soft, non-tender, no distention, positive bowel sounds Musculoskeletal: no edema Neurological: non-focal Psychiatric: normal affect, A&O x 3 Skin: no rash Dx/Plan (1) ESRD (end stage renal disease) on dialysis Code(s): N18.6 - END STAGE RENAL DISEASE; Z99.2 - DEPENDENCE ON RENAL DIALYSIS Status: Acute (2) Anemia of renal disease Code(s): N18.9 - CHRONIC KIDNEY DISEASE, UNSPECIFIED; D63.1 - ANEMIA IN CHRONIC KIDNEY DISEASE Status: Chronic (3) Metabolic acidosis Code(s): E87.2 - ACIDOSIS Status: Chronic (4) Nephrotic range proteinuria Code(s): R80.9 - PROTEINURIA, UNSPECIFIED Status: Chronic (5) Secondary hyperparathyroidism of renal origin Code(s): N25.81 - SECONDARY HYPERPARATHYROIDISM OF RENAL ORIGIN Status: Chronic (6) Vitamin D deficiency Code(s): E55.9 - VITAMIN D DEFICIENCY, UNSPECIFIED Status: Chronic - Plan * cough and reported hemoptysis resolved - neg AFB so far, another sample needed for testing. * Appreciate Nephrology care - t,th,sat dialysis and outpatient planning for this started * Appreciate Gen Surgery eval - awaiting rule out TB for dialysis access surgery * * bp's well controlled * * dvt prophy - ambulatory * gi prophy - not indicated * code status full * * No questions or further needs at end of eval.
--- NOTE | 2019-02-26 19:29 | PRG ---
DATE OF SERVICE: 02/26/2019 SUBJECTIVE: A 23-year-old male being seen for acute kidney injury now, end-stage renal disease on hemodialysis. The patient has no new complaints. Last dialysis was yesterday February 25, 2019. OBJECTIVE: VITAL SIGNS: Temperature 98.2, pulse 68, respiratory rate 18, SpO2 of 97 on room air, and blood pressure 99/56. ASSESSMENT: 1. Acute renal failure, now end-stage renal disease requiring dialysis. 2. Proteinuria. 3. Secondary hyperparathyroidism. 4. Hyperphosphatemia on phosphate binders. 5. Anemia of chronic kidney disease. 6. Suspected tuberculosis given weight loss and history of hemoptysis. Hemoptysis has actually resolved. PLAN: 1. Awaiting AV fistula creation. 2. AFB x3 and QuantiFERON gold is awaited to rule out tuberculosis. 3. Continue hemodialysis Wednesday, , and Wednesday. The patient is for dialysis tomorrow. Job ID: [id number]
[2019-02-27 06:55] LABS: Albumin 3.5 g/dL (3.5-5.0); Anion Gap 17 mmol/L (10-20); BUN (Urea Nitrogen) 45 mg/dL (8.9-20.6); BUN/Creatinine Ratio 4.35; Calc. Creatinine Clearance 11 mL/min (70-130); Calcium 9.7 mg/dL (7.8-10.44); Carbon Dioxide 25 mmol/L (22-29); Chloride 101 mmol/L (98-107); Estimated GFR-MDRD 6; Glucose 76 mg/dL (70-105); Phosphorus 8.8 mg/dL (2.3-4.7); Potassium 4.3 mmol/L (3.5-5.1); Sodium 139 mmol/L (136-145)
[2019-02-27] MEDS: Calcitriol 0.25 MCG CAP PO SCH (08:16)
[2019-02-27] MEDS: Iron, Sodium Ferric Gluconate 250 MG in Sodium Chloride 0.9% 250 ML 250 ML IVPB SCH (08:16)
[2019-02-27] MEDS: Cinacalcet HCl 30 MG TAB PO SCH (08:16)
[2019-02-27] MEDS: Sevelamer Carbonate 800 MG TAB PO SCH ×3 (08:17→16:51)
--- NOTE | 2019-02-27 10:29 | PDOC.PN ---
- Subjective Encounter Start Date: 02/27/19 Encounter Start Time: 10:27 Subjective: no complaints - Objective Resuscitation Status - Order Detail: 02/22/19 18:35 Resuscitation Status Routine Co-Sign Provider: Resuscitation Status: FULL: Full Resuscitation Discussed with: patient EVELINE Reviewed: Yes Vital Signs & Weight: Vital Signs (12 hours) Temp Pulse Resp BP Pulse Ox 02/27/19 08:00 97 02/27/19 07:28 98.4 F 77 16 110/65 97 Weight Weight 159 lb 5 oz I&O: 02/26/19 02/27/19 02/28/19 06:59 06:59 06:59 Intake Total 980 1320 240 Balance 980 1320 240 Result Diagrams: 02/25/19 07:22 02/27/19 05:54 Phys Exam - Physical Examination Neck: no JVD Respiratory: clear to auscultation bilateral Cardiovascular: RRR, no significant murmur Gastrointestinal: soft, non-tender, positive bowel sounds Musculoskeletal: no edema Dx/Plan (1) ESRD (end stage renal disease) on dialysis Code(s): N18.6 - END STAGE RENAL DISEASE; Z99.2 - DEPENDENCE ON RENAL DIALYSIS Status: Acute (2) Anemia of renal disease Code(s): N18.9 - CHRONIC KIDNEY DISEASE, UNSPECIFIED; D63.1 - ANEMIA IN CHRONIC KIDNEY DISEASE Status: Chronic (3) Metabolic acidosis Code(s): E87.2 - ACIDOSIS Status: Chronic (4) Nephrotic range proteinuria Code(s): R80.9 - PROTEINURIA, UNSPECIFIED Status: Chronic (5) Secondary hyperparathyroidism of renal origin Code(s): N25.81 - SECONDARY HYPERPARATHYROIDISM OF RENAL ORIGIN Status: Chronic - Plan cont HD -: needs fistula -: eventual placement for outpt HD * .
--- NOTE | 2019-02-27 15:22 | PRG ---
DATE OF SERVICE: 02/27/2019 SUBJECTIVE: A 23-year-old with KYLIE, now end-stage renal disease. No new problem. AV fistula creation is contemplated. Appetite is good. Presented for dialysis tomorrow. OBJECTIVE: VITAL SIGNS: Temperature 98.4, pulse 77, respiratory rate 16, SpO2 of 97% on room air, and blood pressure 110/65. GENERAL: Healthy-looking young male, in no distress. Afebrile. Anicteric. HEENT: Normocephalic, atraumatic. Pupils are equal and reacting to light. CARDIOVASCULAR: Regular rhythm and rate. Normal heart sounds 1 and 2. RESPIRATORY: Good air entry bilaterally with no obvious crackle or rhonchi. GI: Abdomen is full, soft, nontender, and nondistended with normal bowel sounds. EXTREMITIES: No edema. NEUROLOGIC: Conscious and alert and oriented x3 with appropriate mental status. DIAGNOSTIC DATA: Renal function panel today showed sodium 139, potassium 4.3, chloride 101, CO2 of 25, BUN 45, creatinine 10.34, glucose 76, calcium 9.7, phosphorus 8.8, and albumin 3.5. ASSESSMENT AND PLAN: 1. Acute kidney injury: Etiology is unclear. Now end-stage renal disease. Ultrasound showed small kidneys, hence no biopsy could be obtained, consistent with chronic kidney disease. The patient also found to have severe secondary hyperparathyroidism. 2. Secondary hyperparathyroidism: Continue calcitriol. 3. Vitamin D deficiency. Continue vitamin D supplementation. 4. Volume status: The patient seems euvolemic. Continue to pee. 5. Suspected tuberculosis: Awaiting QuantiFERON Gold and AFB x3. 6. AV fistula creation planned. This to take place once tuberculosis is ruled out. Presented for hemodialysis tomorrow. Job ID: [id number]
[2019-02-28 07:56] LABS: Albumin 3.7 g/dL (3.5-5.0); Anion Gap 20 mmol/L (10-20); BUN (Urea Nitrogen) 60 mg/dL (8.9-20.6); BUN/Creatinine Ratio 4.68; Calc. Creatinine Clearance 9 mL/min (70-130); Carbon Dioxide 23 mmol/L (22-29); Chloride 103 mmol/L (98-107); Estimated GFR-MDRD 5; Glucose 72 mg/dL (70-105); Potassium 5.4 mmol/L (3.5-5.1); Sodium 141 mmol/L (136-145)
[2019-02-28 08:32] LABS: Phosphorus 9.2 mg/dL (2.3-4.7)
[2019-02-28] MEDS: Calcitriol 0.25 MCG CAP PO SCH (09:33)
[2019-02-28] MEDS: Sevelamer Carbonate 800 MG TAB PO SCH ×3 (09:33→17:34)
[2019-02-28] MEDS: Cinacalcet HCl 30 MG TAB PO SCH (09:34)
[2019-02-28] MEDS ORDERED: Heparin 10,000 UNITS/ 10 ML VIAL ONE (10:00)
--- NOTE | 2019-02-28 11:46 | PDOC.PN ---
- Subjective Encounter Start Date: 02/28/19 Encounter Start Time: 11:45 Subjective: no complaints - Objective Resuscitation Status - Order Detail: 02/22/19 18:35 Resuscitation Status Routine Co-Sign Provider: Resuscitation Status: FULL: Full Resuscitation Discussed with: patient EVELINE Reviewed: Yes Vital Signs & Weight: Vital Signs (12 hours) Temp Pulse Resp BP Pulse Ox 02/28/19 07:38 98.2 F 80 16 123/73 99 02/28/19 04:00 98.4 F 78 18 112/72 99 02/28/19 00:00 98.5 F 85 16 115/72 98 Weight Weight 159 lb 5 oz I&O: 02/27/19 02/28/19 03/01/19 06:59 06:59 06:59 Intake Total 1320 480 Balance 1320 480 Result Diagrams: 02/25/19 07:22 02/28/19 06:49 Phys Exam - Physical Examination Neck: no JVD Respiratory: clear to auscultation bilateral Cardiovascular: RRR, no significant murmur Gastrointestinal: soft, positive bowel sounds Musculoskeletal: no edema Dx/Plan (1) ESRD (end stage renal disease) on dialysis Code(s): N18.6 - END STAGE RENAL DISEASE; Z99.2 - DEPENDENCE ON RENAL DIALYSIS Status: Acute (2) Anemia of renal disease Code(s): N18.9 - CHRONIC KIDNEY DISEASE, UNSPECIFIED; D63.1 - ANEMIA IN CHRONIC KIDNEY DISEASE Status: Chronic (3) Metabolic acidosis Code(s): E87.2 - ACIDOSIS Status: Chronic (4) Nephrotic range proteinuria Code(s): R80.9 - PROTEINURIA, UNSPECIFIED Status: Chronic (5) Secondary hyperparathyroidism of renal origin Code(s): N25.81 - SECONDARY HYPERPARATHYROIDISM OF RENAL ORIGIN Status: Chronic - Plan cont HD -: cont calcitrol * .
--- NOTE | 2019-02-28 14:20 | RAD ---
CHEST 1 VIEW: Date: 02/28/19 HISTORY: Renal failure. Patient is on dialysis. COMPARISON: 02/22/19. FINDINGS: Heart size is within normal limits. Right-sided venous access catheter. The lungs are clear. No pneum onia, edema, or pleural effusion. IMPRESSION: No acute intrathoracic disease. POS: [facility]
--- NOTE | 2019-02-28 16:00 | PRG ---
DATE OF SERVICE: 02/28/2019 SUBJECTIVE: No new problem. The patient is for hemodialysis today. Cough, sputum production, and hemoptysis have all subsided. Only 2 samples of sputum could be obtained for AFB. The patient remained afebrile. Denies shortness of breath. Still making some urine. OBJECTIVE: VITAL SIGNS: Temperature 98.2, pulse 80, respiratory rate 16, SpO2 99% on room air, and blood pressure 123/73. GENERAL: Young male, in no distress. Afebrile. Anicteric. HEENT: Normocephalic, atraumatic. Pupils are equal and reacting to light. CARDIOVASCULAR: Regular rhythm and rate with normal heart sounds one and two. RESPIRATORY: Good air entry bilaterally with no obvious crackle or rhonchi. GI: Abdomen is full, soft, nontender, nondistended with normal bowel sounds. EXTREMITIES: Grossly normal looking, atraumatic with no edema or erythema. NEUROLOGIC: Conscious, alert and oriented x3 with appropriate mental status. The patient is ambulant. DIAGNOSTIC DATA: Renal function panel today showed sodium 141, potassium 5.4, chloride 103, CO2 23, BUN 60, creatinine 12.82, glucose 72, calcium 10.0, phosphorus 9.2, albumin 3.7. AFB x2, negative for acid-fast bacilli. QuantiFERON gold is awaited at this time. ASSESSMENT AND PLAN: 1. Acute kidney injury on chronic kidney disease, now end-stage renal disease on hemodialysis Wednesday, , and Wednesday. The patient is for hemodialysis today. He will be dialyzed with 2K bath. Blood flow 400 for 4 hours with UF as tolerated. 2. Secondary hyperparathyroidism: Continue phosphate binders and calcitriol. 3. Vitamin D deficiency: Continue vitamin D supplementation. 4. Suspected TB: Given hemoptysis and weight loss. This most likely is from uremia. AFB x2 were negative. QuantiFERON gold is awaited. DISPOSITION: Case management is working on arranging outpatient dialysis. The patient will be discharged once outpatient dialysis arrangement is concluded. Job ID: [id number]
[2019-02-28] MEDS: Lisinopril 5 MG TAB PO SCH (20:01)
[2019-03-01 06:39] LABS: Albumin 3.6 g/dL (3.5-5.0); Anion Gap 15 mmol/L (10-20); BUN (Urea Nitrogen) 28 mg/dL (8.9-20.6); BUN/Creatinine Ratio 3.47; Calc. Creatinine Clearance 15 mL/min (70-130); Calcium 9.8 mg/dL (7.8-10.44); Carbon Dioxide 28 mmol/L (22-29); Chloride 99 mmol/L (98-107); Estimated GFR-MDRD 8; Glucose 75 mg/dL (70-105); Phosphorus 7.5 mg/dL (2.3-4.7); Potassium 4.6 mmol/L (3.5-5.1); Sodium 137 mmol/L (136-145)
[2019-03-01] MEDS: Cinacalcet HCl 30 MG TAB PO SCH (07:35)
[2019-03-01] MEDS: Sevelamer Carbonate 800 MG TAB PO SCH ×3 (07:35→16:37)
[2019-03-01] MEDS: Calcitriol 0.25 MCG CAP PO SCH (07:37)
--- NOTE | 2019-03-01 11:59 | PDOC.PN ---
- Subjective Encounter Start Date: 03/01/19 Encounter Start Time: 11:58 Subjective: no distress - Objective Resuscitation Status - Order Detail: 02/22/19 18:35 Resuscitation Status Routine Co-Sign Provider: Resuscitation Status: FULL: Full Resuscitation Discussed with: patient EVELINE Reviewed: Yes Vital Signs & Weight: Vital Signs (12 hours) Temp Pulse Resp BP Pulse Ox 03/01/19 08:00 97 03/01/19 07:48 98.8 F 77 16 109/70 97 Weight Weight 159 lb 5 oz I&O: 02/28/19 03/01/19 03/02/19 06:59 06:59 06:59 Intake Total 480 1500 240 Output Total 450 Balance 480 1050 240 Result Diagrams: 02/25/19 07:22 03/01/19 06:09 Phys Exam - Physical Examination Respiratory: clear to auscultation bilateral Cardiovascular: RRR, no significant murmur Gastrointestinal: soft, positive bowel sounds Musculoskeletal: no edema Dx/Plan (1) ESRD (end stage renal disease) on dialysis Code(s): N18.6 - END STAGE RENAL DISEASE; Z99.2 - DEPENDENCE ON RENAL DIALYSIS Status: Acute (2) Anemia of renal disease Code(s): N18.9 - CHRONIC KIDNEY DISEASE, UNSPECIFIED; D63.1 - ANEMIA IN CHRONIC KIDNEY DISEASE Status: Chronic (3) Metabolic acidosis Code(s): E87.2 - ACIDOSIS Status: Chronic (4) Nephrotic range proteinuria Code(s): R80.9 - PROTEINURIA, UNSPECIFIED Status: Chronic (5) Secondary hyperparathyroidism of renal origin Code(s): N25.81 - SECONDARY HYPERPARATHYROIDISM OF RENAL ORIGIN Status: Chronic - Plan cont HD, calcitriol, renvea * .
[2019-03-01] MEDS: Lisinopril 5 MG TAB PO SCH (20:09)
--- NOTE | 2019-03-01 20:39 | PRG ---
DATE OF SERVICE: SUBJECTIVE: A young male with new diagnosis of end-stage renal disease, on hemodialysis. No new problem. Last dialysis was on February 28, 2019. OBJECTIVE: VITAL SIGNS: Temperature 98.5, pulse 86, respiratory rate 16, SpO2 99% on room air, and blood pressure 125/70. GENERAL: Young male, in no distress. Afebrile. HEENT: Normocephalic, atraumatic. CARDIOVASCULAR: Regular rhythm and rate with normal heart sounds one and two. RESPIRATORY: Good air entry bilaterally with no crackle or rhonchi. GI: Abdomen is full, soft, nontender, nondistended with normal bowel sounds. EXTREMITIES: Grossly normal looking, atraumatic, with no edema. NEUROLOGIC: Conscious, alert, and oriented x3 with appropriate mental status. DIAGNOSTIC DATA: Renal function panel shows sodium 137, potassium 4.6, chloride 99, CO2 of 28, BUN 28, creatinine 8.06, glucose 75, calcium 9.8, phosphorus 7.5, albumin 3.6. ASSESSMENT AND PLAN: 1. End-stage renal disease, on hemodialysis Wednesday, , and Wednesday. No acute issues. Tolerating hemodialysis well. Discussed with General Surgery for AV fistula creation. The patient will be scheduled to have it as soon as possible. Etiology of end-stage renal disease is unclear; however, presence of secondary hyperparathyroidism and small kidneys about 7 cm is consistent with chronic kidney disease. 2. Secondary hyperparathyroidism: We will continue with Sensipar. 3. Vitamin D deficiency: Continue supplementation with vitamin D. 4. Suspected tuberculosis: Given hemoptysis and weight loss, this most likely is from uremia. AFB x2 was negative. Chest x-ray was also unremarkable. Discussed with Infectious Disease. The patient is unlikely to have TB given 2 negative samples. At worse, he may have a latent tuberculosis. QuantiFERON Gold is awaited at this time. We will discontinue airborne precaution. We will continue with arrangement for outpatient dialysis and the patient will be discharged once arrangement is concluded. Job ID: [id number]
[2019-03-02 05:32] LABS: Albumin 3.6 g/dL (3.5-5.0); Anion Gap 18 mmol/L (10-20); BUN (Urea Nitrogen) 44 mg/dL (8.9-20.6); BUN/Creatinine Ratio 4.02; Calc. Creatinine Clearance 11 mL/min (70-130); Calcium 9.7 mg/dL (7.8-10.44); Carbon Dioxide 25 mmol/L (22-29); Chloride 101 mmol/L (98-107); Estimated GFR-MDRD 6; Glucose 77 mg/dL (70-105); Phosphorus 8.7 mg/dL (2.3-4.7); Potassium 4.8 mmol/L (3.5-5.1); Sodium 139 mmol/L (136-145)
[2019-03-02] MEDS: Sevelamer Carbonate 800 MG TAB PO SCH ×3 (08:00→17:07)
[2019-03-02] MEDS: Cinacalcet HCl 30 MG TAB PO SCH (13:14)
[2019-03-02] MEDS: Ergocalciferol 1.25 MG(50,000 UNITS) CAP PO SCH (13:14)
[2019-03-02] MEDS: Calcitriol 0.25 MCG CAP PO SCH (13:14)
[2019-03-02 14:15] LABS: QuantiFERON-TB Gold Plus Negative (Negative)
--- NOTE | 2019-03-02 14:31 | PDOC.PN ---
- Subjective Encounter Start Date: 03/02/19 Encounter Start Time: 14:30 Subjective: no complaints - Objective Resuscitation Status - Order Detail: 02/22/19 18:35 Resuscitation Status Routine Co-Sign Provider: Resuscitation Status: FULL: Full Resuscitation Discussed with: patient EVELINE Reviewed: Yes Vital Signs & Weight: Vital Signs (12 hours) Temp Pulse Resp BP Pulse Ox 03/02/19 13:00 98.0 F 88 16 106/64 99 03/02/19 07:53 99 03/02/19 07:52 98.1 F 84 16 106/71 99 Weight Admit Weight 159 lb 5 oz Weight 159 lb 5 oz I&O: 03/01/19 03/02/19 03/03/19 06:59 06:59 06:59 Intake Total 1500 1200 Output Total 450 Balance 1050 1200 Result Diagrams: 02/25/19 07:22 03/02/19 04:58 Phys Exam - Physical Examination Neck: no JVD Respiratory: clear to auscultation bilateral Cardiovascular: RRR, no significant murmur Gastrointestinal: soft, positive bowel sounds Musculoskeletal: no edema Dx/Plan (1) ESRD (end stage renal disease) on dialysis Code(s): N18.6 - END STAGE RENAL DISEASE; Z99.2 - DEPENDENCE ON RENAL DIALYSIS Status: Acute (2) Anemia of renal disease Code(s): N18.9 - CHRONIC KIDNEY DISEASE, UNSPECIFIED; D63.1 - ANEMIA IN CHRONIC KIDNEY DISEASE Status: Chronic (3) Metabolic acidosis Code(s): E87.2 - ACIDOSIS Status: Resolved (4) Nephrotic range proteinuria Code(s): R80.9 - PROTEINURIA, UNSPECIFIED Status: Chronic (5) Secondary hyperparathyroidism of renal origin Code(s): N25.81 - SECONDARY HYPERPARATHYROIDISM OF RENAL ORIGIN Status: Chronic - Plan cont HD, etc * .
--- NOTE | 2019-03-02 14:58 | PRG ---
DATE OF SERVICE: 03/02/2019 SUBJECTIVE: The patient with end-stage renal disease, on hemodialysis. No new problem. The etiology of renal disease remains unclear. Denied nausea, vomiting, diarrhea, abdominal pain, cough, or sputum production. OBJECTIVE: VITAL SIGNS: Temperature 98.0, pulse 88, respiratory rate 16, SpO2 of 99% on room air. Blood pressure 106/64. GENERAL: Young male, in no distress. Afebrile. Anicteric. Acyanotic. HEENT: Normocephalic, atraumatic. Pupils are equal and reacting to light. Oral mucosa is moist. RESPIRATORY: Good air entry bilaterally with no crackle or rhonchi. CARDIOVASCULAR: Regular rhythm and rate, with normal heart sounds one and two. GI: Full, soft, nontender, nondistended with normal bowel sounds. EXTREMITIES: Grossly normal looking, atraumatic with no edema or erythema. NEUROLOGIC: Conscious and alert, oriented x3 with appropriate mental status. DIAGNOSTIC DATA: Renal function panel showed sodium 139, potassium 4.9, chloride 101, CO2 of 25, BUN 44, creatinine 10.94, glucose 77, calcium 9.7, phosphorus 8.7, albumin 3.6. QuantiFERON Gold test is negative. ASSESSMENT AND PLAN: 1. Acute kidney injury on chronic kidney disease, now end-stage renal disease. The patient has been on hemodialysis Wednesday, , Wednesday since admission. He will be dialyzed today for 4 hours with blood flow 400. UF 0 to 1000 as tolerated with 2K bath. 2. Suspected tuberculosis: Ruled out with AFB x2, chest x-ray and QuantiFERON Gold. 3. Proteinuria. Continue lisinopril. 4. Secondary hyperparathyroidism: Continue calcitriol. 5. Vitamin D deficiency: Continue vitamin D supplementation. 6. Volume status: Euvolemic. The patient continues to make some urine. 7. Disposition: The patient can be discharged today. Outpatient dialysis has been arranged. The patient will be started on Wednesday, Wednesday, Wednesday evening shift. Job ID: [id number]
--- NOTE | 2019-03-02 16:00 | DIS ---
DATE OF ADMISSION: 02/22/2019 DATE OF DISCHARGE: 03/02/2019 [facility] admission for [facility]. DISPOSITION: Discharged home. FINAL DIAGNOSES: End-stage renal disease, hypertension, secondary hyperparathyroidism of renal origin, hemoptysis. DISCHARGE MEDICATIONS: 1. Sensipar 30 mg a day. 2. Rocaltrol 0.25 mg a day. 3. Lisinopril 5 mg a day. 4. Renvela 1600 mg p.o. 3 times a day. ALLERGIES: NO ALLERGIES. CODE STATUS: Full. DIET: High protein, renal. HOSPITAL COURSE: [facility]. He is a 23-year-old gentleman who was on vacation in [place], got sick, went to a doctor, showed he had renal failure. He was started on dialysis, told his renal failure was due to uncontrolled blood pressure. He states he has never been told he had trouble with blood pressure. The patient was seen in the emergency room, [facility] His white cell count was 8.5, hemoglobin 9.1, hematocrit 27.1, platelets 217, sodium 140, chloride 102, potassium 4.9, BUN 76, and creatinine 15. He was admitted to the hospital. Dr. Tom Irving, Nephrology, was seen in consultation. Renal ultrasound was consistent with chronic kidney disease. He was started on hemodialysis followed by both the [facility] and Dr. Tom Irving. Consultation with Dr. Wally Canales, General Surgery, was done on 03/07. Plans are currently for him to have left AV fistula by Dr. Wally Canales on March 14, 2019. He has had outpatient hemodialysis arranged in [facility] on Wednesday, Wednesday, and Wednesday. His laboratory studies were not remarkably changed while he was on dialysis here. His calcium is normalized. His phosphorus is coming down with therapy. His drug screen was negative. JOSE ANTONIO was negative. Complement levels were within normal limits. The patient was studied for TB, because of his hemoptysis. He had negative acid-fast bacillus x2. Currently, vital signs are stable. Cardiorespiratory exam is stable. No procedures have been done. He is going to have the AV fistula done later. He will be followed up by Dr. Tom Irving. Job ID: [id number]
[2019-03-02 19:03] VITALS: BP 97/62; TEMP 98.8
[2019-03-02] MEDS ORDERED: Heparin 1,000 UNITS/ML VIAL ONE (20:51)
--- NOTE | 2019-03-04 11:54 | EKG ---
Test Reason : Blood Pressure : / mmHG Vent. Rate : 084 BPM Atrial Rate : 084 BPM P-R Int : 144 ms QRS Dur : 082 ms QT Int : 362 ms P-R-T Axes : 046 048 056 degrees QTc Int : 427 ms Normal sinus rhythm Normal ECG Confirmed by LAUREN STEVENS M.D. ([id number]), health editor FRANCOISE JONES ([id number]) on 03/04/2019 11:53:45 AM Referred By: Confirmed By:LAUREN STEVENS M.D.
== END 2019-03-02 19:15 | disposition home or self-care (01) | DRG 683 ==
LOC: ERS 13:39 → 2SW 18:24 → OBSVTOIN 19:58 → T4-A 21:31
PROVIDERS: ADMIT Family Medicine; ATTEND Family Medicine
PROC: 5A1D70Z Performance of Urinary Filtration, Intermittent, Less than 6 Hours Per Day (ICD-10-PCS; principal; 2019-02-23)
DX: N17.9 Acute kidney failure, unspecified (principal); I12.0 Hypertensive chronic kidney disease with stage 5 chronic kidney disease or end stage renal disease; E87.2 Acidosis; R04.2 Hemoptysis; N18.6 End stage renal disease; N25.81 Secondary hyperparathyroidism of renal origin; R80.9 Proteinuria, unspecified; D63.1 Anemia in chronic kidney disease; D50.9 Iron deficiency anemia, unspecified; E55.9 Vitamin D deficiency, unspecified; R63.4 Abnormal weight loss; Z68.25 Body mass index [BMI] 25.0-25.9, adult; Z99.2 Dependence on renal dialysis
CPT/HCPCS: 36415; 71045; 71046; 76770; 80053; 80069; 80074; 80306; 81003; 81015; 82043; 82306; 82570; 82728; 83540; 83550; 83970; 84100; 84156; 84300; 85025; 85652; 86038; 86140; 86160; 86225; 86480; 86704; 86705; 86706; 86707; 87086; 87116; 87206; 87340; 87350; 87389; 90935; 93005; 93970; G0257; G0365; J1644; J2916; J7050; S0028

== ENCOUNTER 2019-03-14 09:54 | Day surgery (SDC) | payer MEDICAID ==
[2019-03-13 12:33] VITALS: BMI 26.6
[2019-03-14 11:06] LABS: #Basophils 0.1 thou/uL (0.0-0.2); #Eosinphils 0.3 thou/uL (0.0-0.7); #Lymphocytes 1.7 thou/uL (1.20-3.40); #Monocytes 0.6 thou/uL (0.11-0.59); #Neutrophils 3.7 thou/uL (1.40-6.50); %Basophils 0.9 % (0.0-1.0); %Eosinophils 4.6 % (0.0-10.0); %Lymphocytes 26.6 % (21.0-51.0); %Monocytes 9.1 % (0.0-10.0); %Neutrophils 58.9 % (42.0-75.0); Hemoglobin 7.8 g/dL (14.0-18.0); Mean Corpuscular Hemoglobin 30.8 pg (27.0-31.0); Mean Corpuscular Volume 90.5 fL (78.0-98.0); Mean Platelet Volume 8.5 fL (7.4-10.4); Platelet Count 179 thou/uL (130-400); RBC Distribution Width 11.6 % (11.5-14.5); Red Blood Cell (RBC) Count 2.54 mill/uL (4.70-6.10); White Blood Cell (WBC) Count 6.2 thou/uL (4.8-10.8)
[2019-03-14 11:28] LABS: Anion Gap 14 mmol/L (10-20); BUN (Urea Nitrogen) 21 mg/dL (8.9-20.6); Calc. Creatinine Clearance 17 mL/min (70-130); Calcium 9.7 mg/dL (7.8-10.44); Carbon Dioxide 33 mmol/L (22-29); Chloride 96 mmol/L (98-107); Estimated GFR-MDRD 10; Glucose 79 mg/dL (70-105); Potassium 4.2 mmol/L (3.5-5.1); Sodium 139 mmol/L (136-145)
[2019-03-14] MEDS ORDERED: Fentanyl 100 MCG/2 ML VIAL ONE ×2 (11:28→12:12)
[2019-03-14] MEDS ORDERED: Bupivacaine/Epinephrine 0.25% 30 ML VIAL ONE (12:06)
[2019-03-14] MEDS ORDERED: Lidocaine 2% PF 5 ML VIAL ONE (12:06)
[2019-03-14] MEDS ORDERED: Heparin 5,000 UNITS/ML VIAL ONE (12:45)
[2019-03-14] MEDS ORDERED: Phenylephrine 0.25% Nasal Spray 15 ML BOT ONE (13:16)
[2019-03-14] MEDS ORDERED: Phenylephrine 1% Nasal Spray 15 ML BOT ONE (13:16)
[2019-03-14] MEDS ORDERED: Phenylephrine HCL 10 MG/ML VIAL ONE (13:17)
[2019-03-14] MEDS ORDERED: Protamine Sulfate 50 MG/5 ML VIAL ONE (13:31)
[2019-03-14] MEDS ORDERED: PROPOFOL 200 MG/20 ML VIAL ONE (14:26)
[2019-03-14] MEDS ORDERED: Heparin 10,000 UNITS/ 10 ML VIAL ONE ×2 (14:26→16:49)
[2019-03-14] MEDS ORDERED: ePHEDrine 50 MG/ML VIAL ONE (14:26)
[2019-03-14] MEDS ORDERED: PHENYLEPHRINE-NS 100 MCG/ML 10 ML SYRINGE ONE (14:26)
[2019-03-14] MEDS ORDERED: Lidocaine 1% PF 5 ML VIAL ONE (14:26)
[2019-03-14] MEDS ORDERED: Ondansetron PF 4 MG/2 ML Vial ONE (14:26)
--- NOTE | 2019-03-14 14:46 | PDOC.OP ---
Operative Note - Operative Note Operative Note: DATE OF PROCEDURE: 03/14/2019 PROCEDURE: Left Osmar AV fistula. SURGEON: Wally Canales M.D. PREOPERATIVE DIAGNOSIS: End-stage renal failure. POSTOPERATIVE DIAGNOSIS: End-stage renal failure. HISTORY: 23-year-old patient with end-stage renal failure who requires permanent access for ongoing hemodialysis. After reviewing vein mapping the decision was made to proceed with a primary fistula on the left PROCEDURE: After informed consent was obtained and appropriate preoperative antibiotics administered, the patient was taken to the operating room and was placed in supine position and general anesthesia was administered. A preoperative block had been declined by the patient. The patient's left arm was prepped and draped in standard sterile fashion. The palpable left cephalic vein and radial artery were marked on the skin. An incision was made between these 2 structures and dissection carried down to the cephalic vein. This was felt to be of adequate caliber and quality to support an AV fistula. The vein was interrogated with cardiac dilators and easily accepted up to a 4 mm dilator. The vein was flushed with heparinized saline and clamped. The radial artery was identified and dissected free and was felt to be of adequate caliber and quality to support a fistula. This was dissected free. Heparin was administered systemically and allowed to circulate for 3 minutes. After the heparin had circulated for 3 minutes, the radial artery was clamped proximally and distally. An anterior arteriotomy was created with an 11 blade and extended with Holguin scissors. The vein was spatulated and an end-to-side anastomosis was created with excellent technical result. Prior to tying down the anastomosis, the arterial inflow was released flushing the anastomosis. The anastomosis was then secured and hemostasis was verified. Flow was established first through the fistula following which flow was restored through the artery. The patient had a palpable thrill in the cephalic vein as well as a good Doppler signal to the level of the antecubital fossa. The wound was irrigated and examined for hemostasis was again confirmed to be excellent. The subcutaneous tissues were reapproximated with a running 3-0 Monocryl sutures and the skin was closed with running 4-0 subcuticular Monocryl suture. Dermabond dressings were placed. Prior to leaving the operating room the fistula was again examined by Doppler and a good bruit confirmed. The patient was then taken to recovery in good condition. Estimated blood loss was minimal. There were no complications. There were no specimens.
== END 2019-03-14 17:15 | disposition home or self-care (01) ==
LOC: SDC 09:54
PROVIDERS: ATTEND Surgery
DX: Z49.01 Encounter for fitting and adjustment of extracorporeal dialysis catheter (principal); N18.6 End stage renal disease
CPT/HCPCS: 80048; 85025; J0690; J1642; J1644; J2001; J2370; J2405; J2704; J2720; J3010; J3490